=== PATIENT | male | born 1960 | race Caucasian/White ===

== ENCOUNTER 2020-08-15 04:17 | Emergency (ER) | payer OTHER ==
[2020-08-15 04:26] VITALS: BP 148/76; PULSE 61; TEMP 98.8; BMI 27.8
[2020-08-15 05:15] LABS: EPI CELLS 11 /uL (0-25.1); HYALINE CASTS 6 /uL (0-3.1); URINE APPEARANCE CLOUDY; URINE BACTERIA 29 /uL (0-1359); URINE BILIRUBIN NEGATIVE (NEGATIVE); URINE COLOR YELLOW; URINE GLUCOSE (UA) NEGATIVE (NEGATIVE); URINE KETONE TRACE (NEGATIVE); URINE LEUK ESTERASE NEGATIVE (NEGATIVE); URINE NITRITE NEGATIVE (NEGATIVE); URINE PROTEIN TRACE (NEGATIVE); URINE UROBILINOGEN 0.2 mg/dL (0.2-1.0); URINE WBC 26 /uL (0-25.8)
[2020-08-15] MEDS ORDERED: KETOROLAC TROMETHAMINE 30 MG/1 ML VIAL IVPUSH ONE (07:36)
[2020-08-15] MEDS ORDERED: KETOROLAC TROMETHAMINE 30 MG/1 ML VIAL ONE (07:39)
[2020-08-15] MEDS ORDERED: morphine CARPU-JECT 4 MG/1 ML DISP.SYRIN IM ONE (07:43)
[2020-08-15] MEDS ORDERED: morphine SULFATE 4 MG/ML VIAL ONE (07:47)
[2020-08-15 15:48] LABS: URINE RBC 271.3 /uL (0-23.9)
== END 2020-08-15 08:56 | disposition home or self-care (01) ==
LOC: JER 04:17
PROC: 3E023NZ Introduction of Analgesics, Hypnotics, Sedatives into Muscle, Percutaneous Approach (ICD-10-PCS; principal; 2020-08-15)
DX: N20.0 Calculus of kidney (principal); K80.50 Calculus of bile duct without cholangitis or cholecystitis without obstruction
CPT/HCPCS: 74176-TC; 81003; 87086; 99284-25

== ENCOUNTER 2020-08-20 07:03 | Inpatient (IN) | payer OTHER ==
[2020-08-20 07:37] VITALS: BMI 27.8
[2020-08-20] MEDS ORDERED: morphine CARPU-JECT 2 MG/1 ML DISP.SYRIN IVPUSH ONE (07:51)
[2020-08-20] MEDS ORDERED: MORPHINE SULFATE 2 MG/ML VIAL ONE (07:57)
[2020-08-20 08:30] LABS: BASO % 0.4 % (0-2.0); EOS % 2.5 % (0-4.5); HEMATOCRIT 43.3 % (35.4-49); HEMOGLOBIN 15.2 GM/dL (11.7-16.9); LYMPH % 17.5 % (8-40); MCH 31.6 pg (25.7-33.7); MCHC 35.2 g/dl (32.0-35.9); MEAN CELL VOLUME 89.8 fl (80-96); MEAN PLT VOLUME 8.1 fl (7.5-11.1); MONO % 6.7 % (3.8-10.2); NEUT % 72.9 % (42.8-82.8); PLATELET COUNT 196 K/MM3 (134-434); RBC 4.82 M/mm3 (4.00-5.60); RDW 13.9 % (11.9-15.9); WHITE BLOOD COUNT 6.6 K/mm3 (4.0-10.0)
[2020-08-20 08:33] LABS: EPI CELLS 10 /uL (0-25.1); HYALINE CASTS 1 /uL (0-3.1); PH,URINE 6.5 (5.0-8.0); URINE APPEARANCE CLOUDY; URINE BACTERIA 28 /uL (0-1359); URINE BILIRUBIN NEGATIVE (NEGATIVE); URINE COLOR ORANGE; URINE GLUCOSE (UA) NEGATIVE (NEGATIVE); URINE KETONE NEGATIVE (NEGATIVE); URINE LEUK ESTERASE TRACE (NEGATIVE); URINE NITRITE NEGATIVE (NEGATIVE); URINE PROTEIN TRACE (NEGATIVE); URINE RBC 8022 /uL (0-23.9); URINE WBC 13 /uL (0-25.8)
[2020-08-20] MEDS ORDERED: HYDROmorphone HCL CARPU-JECT 2 MG/1 ML DISP.SYRIN IVPUSH ONE ×2 (08:36→11:47)
[2020-08-20] MEDS ORDERED: ACETAMINOPHEN 1000 MG/100 ML VIAL (NON FORMULARY) IVPB ONE (08:37)
[2020-08-20] MEDS ORDERED: HYDROmorphone HCl 2 MG/ML VIAL ONE ×2 (08:40→11:51)
[2020-08-20] MEDS ORDERED: ACETAMINOPHEN INJECTION 100 ML IVPB ONE (08:40)
[2020-08-20 08:44] LABS: POTASSIUM 3.6 mmol/L (3.5-5.1)
[2020-08-20 08:46] LABS: BLOOD UREA NITROGEN 11.7 mg/dL (7-18); CALCIUM 9.2 mg/dL (8.5-10.1)
[2020-08-20 08:50] LABS: CREATININE 0.9 mg/dL (0.55-1.3)
[2020-08-20 08:51] LABS: BILIRUBIN,TOTAL 0.8 mg/dL (0.2-1); TOT PROT 7.1 g/dl (6.4-8.2)
[2020-08-20] MEDS ORDERED: KETOROLAC TROMETHAMINE 15 MG/ML VIAL IVPUSH ONE (11:46)
[2020-08-20] MEDS ORDERED: ALBUTEROL SO4 HFA INHALER IH ONE ×2 (11:46→11:50)
[2020-08-20] MEDS ORDERED: KETOROLAC TROMETHAMINE 15 MG/ML VIAL ONE (11:52)
[2020-08-20] MEDS ORDERED: ALBUTEROL SO4 2.5/IPRATROPIUM 0.5 INH SOL 3 ML VIAL.NEB. NEB PRN (14:24)
[2020-08-20] MEDS ORDERED: ZOLPIDEM TARTRATE 5 MG TABLET PO PRN (14:24)
[2020-08-20] MEDS ORDERED: ACETAMINOPHEN 325 MG TABLET (FP) PO PRN (14:24)
[2020-08-20] MEDS ORDERED: PANTOPRAZOLE 40 MG TABLET ONE (14:32)
[2020-08-20] MEDS: PANTOPRAZOLE 40 MG TABLET PO SCH (14:37)
[2020-08-20] MEDS ORDERED: oxyCODONE HCL 5 MG TABLET ONE (16:17)
[2020-08-20] MEDS: oxyCODONE HCL 5 MG TABLET PO PRN (16:20)
[2020-08-20] MEDS: INSULIN SLIDING SCALE (NOVOLOG) 1 VIAL SQ SCH ×2 (16:40→22:19)
[2020-08-20] MEDS ORDERED: MONTELUKAST NA 10 MG TABLET ONE (22:07)
[2020-08-20] MEDS ORDERED: DOCUSATE SODIUM 100 MG CAPSULE (FP) PO ONE (22:07)
[2020-08-20] MEDS: MONTELUKAST NA 10 MG TABLET PO SCH (22:18)
[2020-08-20] MEDS: DOCUSATE SODIUM 100 MG CAPSULE (FP) PO SCH (22:18)
[2020-08-20] MEDS: BUDESONIDE/FORMETEROL FUMARATE 160/4.5 mcg INHALER IH SCH (22:19)
[2020-08-21] MEDS: INSULIN SLIDING SCALE (NOVOLOG) 1 VIAL SQ SCH ×3 (06:20→21:39)
[2020-08-21 09:11] LABS: HEMOGLOBIN 14.7 GM/dL (11.7-16.9); MCH 31.7 pg (25.7-33.7); MEAN CELL VOLUME 90.6 fl (80-96); MEAN PLT VOLUME 9.1 fl (7.5-11.1); PLATELET COUNT 178 K/MM3 (134-434); RBC 4.64 M/mm3 (4.00-5.60); RDW 13.8 % (11.9-15.9); WHITE BLOOD COUNT 6.6 K/mm3 (4.0-10.0)
[2020-08-21 09:27] LABS: POTASSIUM 3.9 mmol/L (3.5-5.1)
[2020-08-21] MEDS: TAMSULOSIN HCL 0.4 MG CAP PO SCH (09:40)
[2020-08-21] MEDS: FINASTERIDE 5 MG TABLET (FP) PO SCH (09:40)
[2020-08-21] MEDS: LOSARTAN 50MG/HCTZ 12.5MG 1 TAB PO SCH (09:40)
[2020-08-21] MEDS: PANTOPRAZOLE 40 MG TABLET PO SCH (09:40)
[2020-08-21] MEDS: oxyCODONE HCL 5 MG TABLET PO PRN (09:46)
[2020-08-21 09:52] LABS: CREATININE 1.1 mg/dL (0.55-1.3)
[2020-08-21 09:55] LABS: BILIRUBIN,TOTAL 0.5 mg/dL (0.2-1); TOT PROT 6.8 g/dl (6.4-8.2)
[2020-08-21] MEDS ORDERED: HYDROmorphone HCl 2 MG/ML VIAL IVPB PRN (10:00)
[2020-08-21 10:12] LABS: ALBUMIN 3.7 g/dl (3.4-5.0); BLOOD UREA NITROGEN 15.4 mg/dL (7-18); CALCIUM 9.1 mg/dL (8.5-10.1)
[2020-08-21] MEDS: BUDESONIDE/FORMETEROL FUMARATE 160/4.5 mcg INHALER IH SCH ×2 (11:41→21:36)
[2020-08-21] MEDS: NICOTINE 21 MG/24 HOURS TOPICAL PATCH TD SCH (11:41)
[2020-08-21] MEDS: SODIUM CHLORIDE 1,000 ML IV SCH (15:42)
[2020-08-21] MEDS: MONTELUKAST NA 10 MG TABLET PO SCH (21:36)
[2020-08-21] MEDS: DOCUSATE SODIUM 100 MG CAPSULE (FP) PO SCH (21:36)
[2020-08-22] MEDS: INSULIN SLIDING SCALE (NOVOLOG) 1 VIAL SQ SCH ×4 (06:25→22:23)
[2020-08-22] MEDS: TAMSULOSIN HCL 0.4 MG CAP PO SCH (10:30)
[2020-08-22] MEDS: PANTOPRAZOLE 40 MG TABLET PO SCH (10:31)
[2020-08-22] MEDS: LOSARTAN 50MG/HCTZ 12.5MG 1 TAB PO SCH (10:31)
[2020-08-22] MEDS: FINASTERIDE 5 MG TABLET (FP) PO SCH (10:31)
[2020-08-22] MEDS: SODIUM CHLORIDE 1,000 ML IV SCH (10:31)
[2020-08-22] MEDS: BUDESONIDE/FORMETEROL FUMARATE 160/4.5 mcg INHALER IH SCH ×2 (10:32→22:24)
[2020-08-22] MEDS: NICOTINE 21 MG/24 HOURS TOPICAL PATCH TD SCH (10:32)
[2020-08-22 10:56] LABS: BASO % 0.5 % (0-2.0); EOS % 2.2 % (0-4.5); HEMATOCRIT 42.5 % (35.4-49); HEMOGLOBIN 14.9 GM/dL (11.7-16.9); LYMPH % 16.8 % (8-40); MCH 31.8 pg (25.7-33.7); MCHC 35.1 g/dl (32.0-35.9); MEAN CELL VOLUME 90.6 fl (80-96); MONO % 6.4 % (3.8-10.2); NEUT % 74.1 % (42.8-82.8); PLATELET COUNT 190 K/MM3 (134-434); RBC 4.69 M/mm3 (4.00-5.60); RDW 13.7 % (11.9-15.9); WHITE BLOOD COUNT 5.9 K/mm3 (4.0-10.0)
[2020-08-22 10:59] LABS: POTASSIUM 3.9 mmol/L (3.5-5.1)
[2020-08-22 11:01] LABS: BLOOD UREA NITROGEN 11.9 mg/dL (7-18); CALCIUM 9.1 mg/dL (8.5-10.1)
[2020-08-22 11:05] LABS: CREATININE 1.1 mg/dL (0.55-1.3)
[2020-08-22 11:06] LABS: TOT PROT 7.6 g/dl (6.4-8.2)
[2020-08-22 11:11] LABS: BILIRUBIN,TOTAL 0.7 mg/dL (0.2-1)
[2020-08-22] MEDS: MONTELUKAST NA 10 MG TABLET PO SCH (22:24)
[2020-08-22] MEDS: DOCUSATE SODIUM 100 MG CAPSULE (FP) PO SCH (22:24)
[2020-08-23 09:34] VITALS: PULSE 80
[2020-08-23] MEDS: LOSARTAN 50MG/HCTZ 12.5MG 1 TAB PO SCH (09:35)
[2020-08-23] MEDS: INSULIN SLIDING SCALE (NOVOLOG) 1 VIAL SQ SCH ×4 (09:35→17:24)
[2020-08-23] MEDS: PANTOPRAZOLE 40 MG TABLET PO SCH (09:35)
[2020-08-23] MEDS: TAMSULOSIN HCL 0.4 MG CAP PO SCH (09:35)
[2020-08-23] MEDS: FINASTERIDE 5 MG TABLET (FP) PO SCH (09:35)
[2020-08-23] MEDS: SODIUM CHLORIDE 1,000 ML IV SCH (09:36)
[2020-08-23] MEDS: NICOTINE 21 MG/24 HOURS TOPICAL PATCH TD SCH (09:36)
[2020-08-23] MEDS: BUDESONIDE/FORMETEROL FUMARATE 160/4.5 mcg INHALER IH SCH (09:40)
[2020-08-23 15:28] VITALS: BP 130/72; TEMP 98.7
== END 2020-08-23 18:35 | disposition home or self-care (01) | DRG 465 ==
LOC: JER 07:03 → JERBED 12:42 → J6WEST-2 22:41
PROVIDERS: ADMIT Family Medicine; ATTEND Family Medicine
DX: N13.2 Hydronephrosis with renal and ureteral calculous obstruction (principal); I10 Essential (primary) hypertension; E78.5 Hyperlipidemia, unspecified; E11.9 Type 2 diabetes mellitus without complications; J44.9 Chronic obstructive pulmonary disease, unspecified
CPT/HCPCS: 36415; 71045-TC-FY; 74176-TC; 80053; 81003; 82962; 83036; 85025; 85027; 87086; 99285-25; C9803; J0131; U0003; U0005

== ENCOUNTER 2023-06-03 16:54 | Emergency (ER) | payer OTHER ==
[2023-06-03] MEDS ORDERED: ACETAMINOPHEN 325 MG TABLET (FP) PO ONE (18:12)
[2023-06-03] MEDS ORDERED: ACETAMINOPHEN 325 MG TABLET (FP) ONE (18:32)
[2023-06-03 18:37] VITALS: BMI 32.3
[2023-06-03 20:59] LABS: EPI CELLS 1 /uL (0-25.1); HYALINE CASTS 22 /uL (0-3.1); PH,URINE 5.5 (5.0-8.0); URINE APPEARANCE CLOUDY; URINE BACTERIA 6004 /uL (0-1359); URINE BILIRUBIN NEGATIVE (NEGATIVE); URINE COLOR DK YELLOW; URINE GLUCOSE (UA) 3+ (NEGATIVE); URINE KETONE 1+ (NEGATIVE); URINE LEUK ESTERASE 2+ (NEGATIVE); URINE NITRITE POSITIVE (NEGATIVE); URINE PROTEIN 1+ (NEGATIVE); URINE RBC 19 /uL (0-23.9); URINE WBC 940 /uL (0-25.8)
[2023-06-03] MEDS ORDERED: CEFTRIAXONE 1 GM in DEXTROSE 5%-WATER - 100 ML IVPB ONE (21:56)
[2023-06-03] MEDS ORDERED: CEFTRIAXONE 1 GM/50 ML BAG ONE (22:34)
[2023-06-04 05:04] VITALS: RESP 20
[2023-06-04] MEDS ORDERED: SULFAMETHOXAZOLE/TRIMETHOPRIM 800MG/160MG D.S. TABLET PO ONE (06:19)
[2023-06-04] MEDS ORDERED: SULFAMETHOXAZOLE/TRIMETHOPRIM 800MG/160MG D.S. TABLET ONE (08:07)
[2023-06-04 09:41] VITALS: BP 160/93; PULSE 119; TEMP 98.1
== END 2023-06-04 10:01 ==
LOC: JER 16:54
DX: N30.01 Acute cystitis with hematuria (principal); R30.0 Dysuria; M54.50 Low back pain, unspecified
CPT/HCPCS: 81003; 82962; 87086; 87186; 96365; 99284-25